=== PATIENT | female | born 1990 | race Caucasian/White ===

== ENCOUNTER 2022-04-04 04:59 | Emergency (ER) | payer OTHER ==
[2022-04-04 05:12] VITALS: BMI 26.2
[2022-04-04] MEDS ORDERED: ACETAMINOPHEN 1000 MG/100 ML BAG IVPB ONE (05:30)
[2022-04-04] MEDS ORDERED: LIDOCAINE 5% TOPICAL PATCH TP ONE (05:30)
[2022-04-04] MEDS ORDERED: ACETAMINOPHEN INJECTION 100 ML IVPB ONE (05:56)
[2022-04-04] MEDS ORDERED: LIDOCAINE 5% TOPICAL PATCH ONE (05:57)
[2022-04-04 06:06] LABS: BASO % 0.5 % (0-2.0); EOS % 2.1 % (0-4.5); HEMATOCRIT 36.2 % (32.4-45.2); HEMOGLOBIN 11.7 GM/dL (10.7-15.3); LYMPH % 22.1 % (8-40); MCHC 32.2 g/dl (32.0-36.0); MEAN CELL VOLUME 83.9 fl (80-96); MEAN PLT VOLUME 8.7 fl (7.5-11.1); MONO % 5.4 % (3.8-10.2); NEUT % 69.9 % (42.8-82.8); PLATELET COUNT 287 10^3/uL (134-434); RBC 4.32 M/mm3 (3.60-5.2); RDW 17.5 % (11.6-15.6); WHITE BLOOD COUNT 10.2 K/mm3 (4.0-10.0)
[2022-04-04 06:23] LABS: CHLORIDE 109 mmol/L (98-107); SODIUM 142 mmol/L (136-145)
[2022-04-04 06:25] LABS: CALCIUM 8.6 mg/dL (8.5-10.1)
[2022-04-04 06:26] LABS: ALBUMIN 3.3 g/dl (3.4-5.0); ANION GAP 6 MMOL/L (8-16); BLOOD UREA NITROGEN 8.4 mg/dL (7-18); CO2 27 mmol/L (21-32); GLUCOSE,RANDOM 85 mg/dL (74-106)
[2022-04-04 06:29] LABS: CREATININE 0.8 mg/dL (0.55-1.3); SGOT/AST 12 U/L (15-37); SGPT/ALT 13 U/L (13-61)
[2022-04-04 06:31] LABS: BILIRUBIN,TOTAL 0.3 mg/dL (0.2-1); TOT PROT 7.4 g/dl (6.4-8.2)
[2022-04-04 06:33] LABS: ALK PHOS 59 U/L (45-117)
[2022-04-04 07:25] VITALS: BP 106/82; PULSE 60; RESP 18; TEMP 98.4
[2022-04-04] MEDS ORDERED: LIDOCAINE PATCH REMOVAL MC SCH (22:00)
== END 2022-04-04 08:25 | disposition home or self-care (01) ==
LOC: JER 04:59
PROC: 3E0333Z Introduction of Anti-inflammatory into Peripheral Vein, Percutaneous Approach (ICD-10-PCS; principal; 2022-04-04)
DX: M54.6 Pain in thoracic spine (principal)
CPT/HCPCS: 36415; 71046-TC-FY; 71275-TC; 80053; 84484; 84703; 85025; 85379; 93005; 93010; 96374; 99285-25; Q9967

== ENCOUNTER 2023-11-09 01:15 | Emergency (ER) | payer OTHER ==
[2023-11-09 01:24] VITALS: BMI 25.5
[2023-11-09 02:39] LABS: BASO % 0.3 % (0-2.0); HEMATOCRIT 36.9 % (32.4-45.2); HEMOGLOBIN 12.1 GM/dL (10.7-15.3); LYMPH % 22.5 % (8-40); MCH 27.7 pg (25.7-33.7); MCHC 32.7 g/dl (32.0-36.0); MEAN CELL VOLUME 84.6 fl (80-96); MEAN PLT VOLUME 8.9 fl (7.5-11.1); MONO % 7.1 % (3.8-10.2); NEUT % 69.1 % (42.8-82.8); PLATELET COUNT 267 10^3/uL (134-434); RBC 4.36 M/mm3 (3.60-5.2); RDW 14.8 % (11.6-15.6); WHITE BLOOD COUNT 10.7 K/mm3 (4.0-10.0)
[2023-11-09 02:44] LABS: EPI CELLS 7 /uL (0-25.1); HYALINE CASTS 0 /uL (0-3.1); URINE APPEARANCE CLEAR; URINE BACTERIA 207 /uL (0-1359); URINE BILIRUBIN NEGATIVE (NEGATIVE); URINE COLOR YELLOW; URINE GLUCOSE (UA) 1+ (NEGATIVE); URINE KETONE NEGATIVE (NEGATIVE); URINE LEUK ESTERASE NEGATIVE (NEGATIVE); URINE NITRITE NEGATIVE (NEGATIVE); URINE PROTEIN NEGATIVE (NEGATIVE); URINE RBC 4 /uL (0-23.9); URINE UROBILINOGEN 0.2 mg/dL (0.2-1.0); URINE WBC 6 /uL (0-25.8)
[2023-11-09 03:16] LABS: POTASSIUM 3.9 mmol/L (3.5-5.1)
[2023-11-09 03:18] LABS: CALCIUM 9.1 mg/dL (8.5-10.1)
[2023-11-09 03:19] LABS: ALBUMIN 3.4 g/dl (3.4-5.0); BLOOD UREA NITROGEN 11.6 mg/dL (7-18)
[2023-11-09 03:22] LABS: CREATININE 0.7 mg/dL (0.55-1.3)
[2023-11-09 03:23] LABS: BILIRUBIN,TOTAL 0.2 mg/dL (0.2-1); TOT PROT 7.6 g/dl (6.4-8.2)
[2023-11-09 05:24] VITALS: BP 108/62; PULSE 70; RESP 19; TEMP 97.7
== END 2023-11-09 05:59 | disposition home or self-care (01) ==
LOC: JER 01:15
DX: O41.8X10 Other specified disorders of amniotic fluid and membranes, first trimester, not applicable or unspecified (principal); O23.41 Unspecified infection of urinary tract in pregnancy, first trimester; Z3A.09 9 weeks gestation of pregnancy
CPT/HCPCS: 36415; 76817-TC; 80053; 81003; 84702; 85025; 86850; 86900; 86901; 87086; 99284-25

== ENCOUNTER 2024-05-31 20:15 | Inpatient (IN) | payer OTHER ==
[2024-05-31] MEDS: LACTATED RINGERS SOLUTION 1,000 ML IV ONE (21:25)
[2024-05-31 21:53] LABS: BASO % 0.2 % (0-2.0); EOS % 0.3 % (0-4.5); HEMATOCRIT 39.5 % (32.4-45.2); HEMOGLOBIN 12.9 GM/dL (10.7-15.3); LYMPH % 13.5 % (8-40); MCH 28.1 pg (25.7-33.7); MCHC 32.7 g/dl (32.0-36.0); MEAN PLT VOLUME 9.6 fl (7.5-11.1); MONO % 4.1 % (3.8-10.2); NEUT % 81.9 % (42.8-82.8); PLATELET COUNT 165 10^3/uL (134-434); RDW 15.4 % (11.6-15.6); WHITE BLOOD COUNT 9.3 K/mm3 (4.0-10.0)
[2024-05-31 22:01] LABS: INR 0.98 (0.83-1.09); PROTHROMBIN TIME (PATIENT) 11.3 SEC (9.7-13.0)
[2024-05-31 22:03] LABS: ACTIVATED PTT 30.4 SECONDS (25.2-36.5)
[2024-05-31 22:10] VITALS: BMI 30.9
[2024-05-31] MEDS ORDERED: FENTANYL/BUPIVACAINE/NS/PF - PCEA - 50 ML DISP.SYRIN EP ONE (22:18)
[2024-05-31] MEDS ORDERED: NALOXONE HCL 0.4 MG/ML VIAL IVPUSH PRN (22:21)
[2024-05-31] MEDS ORDERED: FENTANYL CITRATE/PF 50 MCG/ML VIAL ONE (22:26)
[2024-05-31] MEDS ORDERED: BUPIVACAINE HCL/PF 0.25% (2.5MG/ML) 10 ML VIAL ONE (22:26)
[2024-05-31 22:27] LABS: POTASSIUM 4.9 mmol/L (3.5-5.1)
[2024-05-31 22:28] LABS: CALCIUM 9.3 mg/dL (8.5-10.1)
[2024-05-31 22:32] LABS: CREATININE 0.6 mg/dL (0.55-1.3)
[2024-05-31] MEDS ORDERED: LIDOCAINE HCL 1% PRESERVATIVE FREE - 30ML VIAL ONE (22:46)
[2024-05-31] MEDS ORDERED: OXYTOCIN 20 UNITS in 0.9% NS 20 UNIT/1,000 ML INFUS.BAG IV ONE (22:46)
[2024-05-31] MEDS: OXYTOCIN 20 UNITS in 0.9% NS 20 UNIT/1,000 ML INFUS.BAG IV SCH (23:00)
[2024-05-31 23:18] LABS: HIV INTERPRETATION NEGATIVE (NEGATIVE)
[2024-05-31] MEDS ORDERED: BISACODYL 10 MG SUPP.RECT RC PRN (23:31)
[2024-05-31] MEDS ORDERED: WITCH HAZEL 50% (TUCKS) 40 PAD/JAR PAD TP PRN (23:31)
[2024-05-31] MEDS ORDERED: BENZOCAINE 20% 57 GM BOTTLE TP PRN (23:31)
[2024-05-31] MEDS ORDERED: oxyCODONE HCL 5 MG TABLET PO PRN (23:31)
[2024-05-31] MEDS ORDERED: METHYLERGONOVINE MALEATE 0.2 MG/1 ML AMP IM PRN (23:31)
[2024-06-01] MEDS ORDERED: IBUPROFEN 600 MG TABLET (FP) PO ONE (00:24)
[2024-06-01] MEDS: IBUPROFEN 600 MG TABLET (FP) PO PRN (00:28)
[2024-06-01] MEDS: FENTANYL/BUPIVACAINE/NS/PF - PCEA - 50 ML DISP.SYRIN EP SCH (05:50)
[2024-06-01 07:46] LABS: BASO % 0.2 % (0-2.0); EOS % 0.1 % (0-4.5); HEMATOCRIT 34.8 % (32.4-45.2); HEMOGLOBIN 11.5 GM/dL (10.7-15.3); LYMPH % 13.9 % (8-40); MCH 28.3 pg (25.7-33.7); MEAN CELL VOLUME 85.8 fl (80-96); MEAN PLT VOLUME 9.3 fl (7.5-11.1); MONO % 6.9 % (3.8-10.2); NEUT % 78.9 % (42.8-82.8); PLATELET COUNT 168 10^3/uL (134-434); RBC 4.06 M/mm3 (3.60-5.2); RDW 15.4 % (11.6-15.6); WHITE BLOOD COUNT 10.8 K/mm3 (4.0-10.0)
[2024-06-01] MEDS: ACETAMINOPHEN 325 MG TABLET (FP) PO PRN (08:59)
[2024-06-01] MEDS: PRENATAL VITAMINS W/ FOLIC ACID TABLET (FP) PO SCH (11:28)
[2024-06-01] MEDS: FERROUS SO4 325 MG TABLET (FP) PO SCH (11:28)
[2024-06-01] MEDS ORDERED: SENNOSIDES/DOCUSATE COMBO (SENNA PLUS) TABLET (UD) PO PRN (22:00)
[2024-06-02] MEDS: BENZOCAINE 28 GM HEMORRHOIDAL OINTMENT TP PRN (10:49)
[2024-06-02 14:38] VITALS: BP 94/54; PULSE 71; RESP 17; TEMP 98.5
== END 2024-06-02 15:30 | disposition home or self-care (01) | DRG 560 ==
LOC: JDEL 20:15 → JLDR 21:00 → J3W 06-01 02:32
PROVIDERS: ADMIT Obstetrics & Gynecology; ATTEND Obstetrics & Gynecology
PROC: 10E0XZZ Delivery of Products of Conception, External Approach (ICD-10-PCS; principal; 2024-05-31)
PROC: 0W8NXZZ Division of Female Perineum, External Approach (ICD-10-PCS; 2024-05-31)
DX: O80 Encounter for full-term uncomplicated delivery (principal); Z3A.38 38 weeks gestation of pregnancy; Z37.0 Single live birth
CPT/HCPCS: 36415; 59409; 80048; 85025; 85610; 85730; 86780; 86803; 86850; 86900; 86901; 87389